=== PATIENT | male | born 1930 | race Caucasian/White ===

== ENCOUNTER → 2016-12-10 | Outpatient (CLI) | payer MEDICARE, BC | END | disposition home or self-care (01) | LOC: PCVCCLINIC 13:08 | PROVIDERS: ATTEND Internal Medicine | DX: I25.10 Atherosclerotic heart disease of native coronary artery without angina pectoris (principal); I48.0 Paroxysmal atrial fibrillation; E78.5 Hyperlipidemia, unspecified; I10 Essential (primary) hypertension; I65.29 Occlusion and stenosis of unspecified carotid artery; Z95.1 Presence of aortocoronary bypass graft | CPT/HCPCS: 93005; G0463 ==

== ENCOUNTER → 2017-06-17 | Outpatient (CLI) | payer MEDICARE, BC ==
--- NOTE | 2017-06-17 13:33 | PCVCIMAG ---
APPROVED REPORT Study performed: 06/17/2017 12:44:33 EXAM: Comprehensive 2D, Doppler, and color-flow Echocardiogram Patient Location: Echo lab Status: routine BSA: 1.88 HR: 74 bpmBP: 166/88 mmHg Rhythm: NSR w/ occasional PVCs Other Information Study Quality: Adequate Risk Factors: Cardiac Risk Factors: HTN Indications CAD CABG, parox A-Fib 2D Dimensions LVEF(%): 44.42 (>50%) IVSd: 11.85 (7-11mm) LVDd: 49.13 mm PWd: 11.16 (7-11mm)Ascending Ao: 38.45 (22-36mm) LVDs: 38.29 (25-40mm) Left Atrium: 44.76 (27-40mm) Aortic Root: 38.41 mm LV Single Plane 4CH: 62.75 % LV Single Plane 2CH: 49.68 %Negrete's LVEF: 56.22 % Biplane EF: 56.6 % Volumes Left Atrial Volume (Systole) Single Plane 4CH: 73.40 mLSingle Plane 2CH: 98.72 mL LA ESV Index: 45.00 mL/m2 Aortic Valve AoV Peak Noé.: 1.79 m/s AO Peak Gr.: 12.76 mmHgLVOT Max P.70 mmHg LVOT Max V: 0.82 m/s AI Vmax: 4.06 m/s AI Vigo: 3.16 m/s2 AI PHT: 372.58 ms Mitral Valve E/A Ratio: 1.7 MV Decel. Time: 137.83 ms MV E Max Noé.: 0.88 m/s MV A Noé.: 0.52 m/s IVRT: 141.87 ms Pulmonary Valve PV Peak Noé.: 0.97 m/sPV Peak Gr.: 3.78 mmHg Pulmonary Vein P Vein S: 0.31 m/sP Vein A: 0.27 m/s P Vein D: 0.37 m/sP Vein A Dur.: 128.0 msec P Vein S/D Ratio: 0.84 Tricuspid Valve TR Peak Noé.: 2.32 m/s TR Peak Gr.: 21.47 mmHg Left Ventricle The left ventricle is normal size. There is normal LV segmental wall motion. Mild concentric left ventricular hypertrophy. Left ventricular systolic function is normal. The left ventricular ejection fraction is within the normal range. LVEF 55-60%. Grade I - abnormal relaxation pattern. Right Ventricle The right ventricle is normal size. The right ventricular systolic function is normal. Atria Left atrium is moderately dilated. The right atrium size is normal. Aortic Valve The aortic valve is trileaflet, mildly calcified. Mild to moderate aortic regurgitation. There is no aortic valvular stenosis. Mitral Valve The mitral valve is normal in structure. Mild mitral regurgitation. No evidence of mitral valve stenosis. Tricuspid Valve The tricuspid valve is normal in structure. Mild tricuspid regurgitation with PAP of 28 mmHg. Pulmonic Valve The pulmonary valve is normal in structure. There is no pulmonic valvular regurgitation. Great Vessels The aortic root is normal in size. IVC is normal in size and collapses with >50% inspiration Pericardium There is no pericardial effusion. <Conclusion> Left ventricular systolic function is normal. There is normal LV segmental wall motion. LVEF 55-60%. Grade I - abnormal relaxation pattern. Left atrium is moderately dilated. The aortic valve is trileaflet, mildly calcified. Mild to moderate aortic regurgitation. No stenosis The mitral valve is normal in structure. Mild mitral regurgitation. Pulmonary artery pressure of 28mmHg There is no pericardial effusion.
== END | disposition home or self-care (01) ==
LOC: PCVCIMAG 13:20
PROVIDERS: ATTEND Internal Medicine Cardiovascular Disease
DX: I08.3 Combined rheumatic disorders of mitral, aortic and tricuspid valves (principal); I49.3 Ventricular premature depolarization; I48.0 Paroxysmal atrial fibrillation; I25.10 Atherosclerotic heart disease of native coronary artery without angina pectoris; E78.5 Hyperlipidemia, unspecified; I10 Essential (primary) hypertension; I65.23 Occlusion and stenosis of bilateral carotid arteries; Z95.1 Presence of aortocoronary bypass graft; Z79.82 Long term (current) use of aspirin; Z79.899 Other long term (current) drug therapy
CPT/HCPCS: 80061; 93005; 93306; G0463

== ENCOUNTER → 2017-12-16 | Outpatient (CLI) | payer MEDICARE, BC | END | disposition home or self-care (01) | LOC: PCVCCLINIC 11:07 | DX: I25.10 Atherosclerotic heart disease of native coronary artery without angina pectoris (principal); I10 Essential (primary) hypertension; I48.0 Paroxysmal atrial fibrillation; E78.5 Hyperlipidemia, unspecified; I65.23 Occlusion and stenosis of bilateral carotid arteries; Z95.1 Presence of aortocoronary bypass graft; Z79.82 Long term (current) use of aspirin; Z79.899 Other long term (current) drug therapy | CPT/HCPCS: 93005; G0463 ==

== ENCOUNTER → 2018-06-23 | Outpatient (CLI) | payer MEDICARE, BC | END | disposition home or self-care (01) | LOC: PCVCCLINIC 13:03 | PROVIDERS: ATTEND Internal Medicine | DX: I25.10 Atherosclerotic heart disease of native coronary artery without angina pectoris (principal); I48.0 Paroxysmal atrial fibrillation; I10 Essential (primary) hypertension; E78.5 Hyperlipidemia, unspecified; I65.23 Occlusion and stenosis of bilateral carotid arteries; Z95.1 Presence of aortocoronary bypass graft; Z79.82 Long term (current) use of aspirin; Z79.899 Other long term (current) drug therapy | CPT/HCPCS: 80061; 93005; G0463 ==

== ENCOUNTER → 2018-12-23 | Outpatient (CLI) | payer MEDICARE, BC | LOC: PCVCCLINIC 13:22 | PROVIDERS: ATTEND Internal Medicine | DX: I25.10 Atherosclerotic heart disease of native coronary artery without angina pectoris (principal); I48.0 Paroxysmal atrial fibrillation; I10 Essential (primary) hypertension; E78.5 Hyperlipidemia, unspecified; I65.23 Occlusion and stenosis of bilateral carotid arteries; Z95.1 Presence of aortocoronary bypass graft; Z79.82 Long term (current) use of aspirin | CPT/HCPCS: 93005; G0463 ==

== ENCOUNTER → 2019-06-30 | Outpatient (CLI) | payer MEDICARE, BC | END | disposition home or self-care (01) | LOC: PCVCCLINIC 16:15 | PROVIDERS: ATTEND Internal Medicine | DX: I25.10 Atherosclerotic heart disease of native coronary artery without angina pectoris (principal); I48.0 Paroxysmal atrial fibrillation; I10 Essential (primary) hypertension; E78.5 Hyperlipidemia, unspecified; I65.23 Occlusion and stenosis of bilateral carotid arteries; Z95.1 Presence of aortocoronary bypass graft; Z98.890 Other specified postprocedural states; Z82.49 Family history of ischemic heart disease and other diseases of the circulatory system; Z79.82 Long term (current) use of aspirin; Z79.899 Other long term (current) drug therapy | CPT/HCPCS: 93005; G0463 ==